=== PATIENT | female | born 1960 | race Caucasian/White ===

== ENCOUNTER 2018-02-07 23:15 | Emergency (ER) | payer OTHER ==
[2018-02-08 00:02] LABS: Bilirubin Negative (Negative); Blood, Urine Small (Negative); Glucose, Urine (Dipstick) Negative (Negative); Leukocyte Moderate (Negative); Nitrite Negative (Negative); Protein, Urine (Dipstick) Negative (Neg-Trace); Urobilinogen 0.2 mg/dL (0.2-1.0)
[2018-02-08 00:19] LABS: Bacteria/HPF 3+ HPF (None Seen); Clarity Slightly Cloudy (Clear); Hyaline Casts/LPF NONE SEEN LPF (0-3 Hyaline); RBC/HPF 0-3 HPF (0-3); Renal Epithelial 0-3 HPF (0-3); Squamous Epithelial 0-3 HPF (0-3); WBC/HPF 21-50 HPF (0-3)
[2018-02-08] MEDS ORDERED: Amoxicillin/Potassium Clav 875 MG TAB ONE (00:31)
== END 2018-02-08 00:43 | disposition home or self-care (01) ==
LOC: SCSER 23:15
DX: N30.90 Cystitis, unspecified without hematuria (principal); F41.9 Anxiety disorder, unspecified
CPT/HCPCS: 81003; 81015; 87077; 87086; 87186; 99283

== ENCOUNTER 2019-05-25 16:32 | Outpatient (CLI) | payer OTHER ==
[~2019-05-25 16:32] MED LIST: Iopamidol 370 76% 100 ML VIAL ONE
--- NOTE | 2019-05-25 18:23 | CT ---
EXAM: Abdomen and pelvic CT scan with contrast: HISTORY: Pain COMPARISON: 12/19/2013 FINDINGS: The visualized lung bases are clear. Liver: Unremarkable. Gallbladder: Unremarkable. Pancreas: Unremarkable Spleen: Unremarkable. Adrenal glands: Unremarkable. Kidneys: Punctate hypoattenuation of the right kidney is too small to definitively characterize . No hydronephrosis. Bowel: No evidence for bowel obstruction. Normal caliber appendix is visualized. Large volume retaine d fecal material in the colon. Urinary Bladder: The urinary bladder is unremarkable. Adenopathy: No adenopathy within the abdomen or pelvis. Free Air: No free air. Ascites: No ascites. Osseous structures: No acute osseous abnormalities. Scattered osseous degenerative changes. IMPRESSION: No CT evidence of an acute abnormality. Constipation.
== END 2019-05-25 16:33 | disposition home or self-care (01) ==
LOC: SCSCT 16:32
PROVIDERS: ATTEND Family Medicine
DX: R10.31 Right lower quadrant pain (principal); K59.00 Constipation, unspecified
CPT/HCPCS: 36415; 74177; 80053; 85025; 87086; Q9967